=== PATIENT | female | born 1965 | race Native Hawaiian/Other Pacific Islander ===

== ENCOUNTER 2017-04-21 15:51 | Observation (INO) | payer BC ==
[~2017-04-21] VITALS: Ht 157.5 cm; Wt 105.2 kg
[~2017-04-21 15:51] MED LIST: ALPR0.2566 PO; AMLO5TAB PO; BENZ100C8 PO; CAL-MAG1 TAB PO; CRESTOR5 MG PO; GLUCOSAMINE1000 M1 PO; MELOXICAM7.5 MG OR; MELOXICAM7.5 MG PO; MULTI COMPLETE PO; NAPROSYN500 MG PO; NEXIUM40 M1 PO; NIACIN500 M4 PO; OXYB5TAB56 PO; PANT40TA PO; PAROXETINE40 MG PO; POT GLUCONAT595 MG PO; PRAMIPEXOLE0.125 MG PO; RANI150T78 PO; SIMV20TA2 PO; VENL75CA2 PO; VIT B12 ER1000 MCG PO; ZINC220 MG PO
[2017-04-21 16:01] VITALS: BP 171/98; TEMP 98.3
[2017-04-21 16:25] LABS: PLATELET COUNT 277 K/uL (152-353)
[2017-04-21 16:39] LABS: POTASSIUM 3.7 mmol/L (3.6-5.2); SODIUM 136 mmol/L (136-145)
[2017-04-21 17:00] VITALS: BP 168/82
[2017-04-21 19:14] VITALS: BP 135/75; TEMP 98; Ht 157.5 cm; Wt 105.2 kg
[2017-04-21 20:00] VITALS: BP 116/65; TEMP 98.1
[2017-04-22] VITALS: BP 90/46; TEMP 98.1
[2017-04-22 04:00] VITALS: BP 90/49; TEMP 97.8
[2017-04-22 08:00] VITALS: BP 119/73; TEMP 97.8
[2017-04-22 12:00] VITALS: BP 100/62; TEMP 97.9
--- NOTE | 2017-04-22 15:00 | NUR ---
IV D/C'D, TELE D/C'D. PT INSTURCTED TO MAKE FU WITH PCP IN ONE WEEK. D/C INSTRUCTIONS GIVEN. PT HAS NO FUTHER QUESTIONS. PT AMBULATED OUT AT THIS TIME. NO PROBLEMS NOTED.
== END 2017-04-22 12:45 | disposition home or self-care (01) ==
LOC: ED 15:51 → MED/SURG 17:05
DX: R07.89 Other chest pain (principal); I10 Essential (primary) hypertension; E78.4 Other hyperlipidemia; E66.8 Other obesity
CPT/HCPCS: 36415; 80053; 82550; 84484; 85027; 93005; 94664; 94760; 96365; 96366; 99220; 99283; G0378; J1650

== ENCOUNTER 2017-12-04 11:29 | Emergency (ER) | payer BC ==
[~2017-12-04] VITALS: Ht 157.5 cm; Wt 104.3 kg
[2017-12-04 11:30] VITALS: TEMP 98.1
[2017-12-04 11:59] LABS: PLATELET COUNT 256 K/uL (152-353)
[2017-12-04 12:05] LABS: POTASSIUM 3.9 mmol/L (3.6-5.2); SODIUM 144 mmol/L (136-145)
[2017-12-04 13:26] VITALS: BP 117/56
== END 2017-12-04 13:40 | disposition home or self-care (01) ==
LOC: ED 11:29
PROVIDERS: Family Medicine
DX: K21.9 Gastro-esophageal reflux disease without esophagitis (principal); R07.89 Other chest pain
CPT/HCPCS: 36415; 80053; 81000; 84484; 85027; 93005; 99283

== ENCOUNTER 2020-01-27 17:05 | Emergency (ER) | payer OTHER ==
[~2020-01-27] VITALS: Ht 157.5 cm; Wt 104.3 kg
[2020-01-27 17:46] LABS: PLATELET COUNT 277 K/uL (152-353)
[2020-01-27 17:56] LABS: SODIUM 140 mmol/L (136-145)
[2020-01-27 17:58] LABS: PARTIAL THROMBOPLASTIN TIME 22.1 SECONDS (24.5-33.6)
[2020-01-27 18:59] VITALS: BP 172/69; TEMP 99.7
== END 2020-01-27 19:01 | disposition home or self-care (01) ==
LOC: ED 17:05
PROVIDERS: Hospitalist
DX: J45.998 Other asthma (principal); J06.9 Acute upper respiratory infection, unspecified; R09.1 Pleurisy
CPT/HCPCS: 80053; 82550; 83880; 84484; 85027; 85379; 85610; 85730; 87040; 93005; 96365; 96375; 99284; J0696; J1885; J2930

== ENCOUNTER 2020-04-01 12:00 | Emergency (ER) | payer OTHER ==
[~2020-04-01] VITALS: Ht 157.5 cm; Wt 102.1 kg
[2020-04-01 12:00] VITALS: TEMP 98.2
[2020-04-01 13:38] VITALS: BP 165/84
== END 2020-04-01 13:38 | disposition home or self-care (01) ==
LOC: ED 12:05
DX: J06.9 Acute upper respiratory infection, unspecified (principal); Z20.828 Contact with and (suspected) exposure to other viral communicable diseases
CPT/HCPCS: 87635; 99282; U0003

== ENCOUNTER 2020-07-04 08:54 | Outpatient (CLI) | payer OTHER | END 2020-07-04 21:00 | disposition home or self-care (01) | LOC: RAD 08:54 | PROVIDERS: ATTEND Nurse Practitioner Family | DX: M54.9 Dorsalgia, unspecified (principal); M54.5 Low back pain ==

== ENCOUNTER 2020-08-23 16:27 | Outpatient (CLI) | payer OTHER | END 2020-08-23 23:06 | disposition home or self-care (01) | LOC: LABW 16:27 | PROVIDERS: ATTEND Nurse Practitioner Family | DX: R07.9 Chest pain, unspecified (principal) | CPT/HCPCS: 36415; 82550; 82552; 82553; 84484 ==

== ENCOUNTER 2020-11-15 10:40 | Outpatient (CLI) | payer OTHER | END 2020-11-15 23:00 | disposition home or self-care (01) | LOC: MRI 10:40 | PROVIDERS: ATTEND Orthopaedic Surgery | DX: M54.5 Low back pain (principal); M51.36 Other intervertebral disc degeneration, lumbar region ==

== ENCOUNTER 2020-11-27 08:33 | Outpatient (CLI) | payer OTHER | END 2020-11-27 22:12 | disposition home or self-care (01) | LOC: RAD 08:33 | PROVIDERS: ATTEND Nurse Practitioner Family | DX: Z13.820 Encounter for screening for osteoporosis (principal) ==

== ENCOUNTER 2021-03-15 10:21 | Emergency (ER) | payer OTHER ==
[~2021-03-15] VITALS: Ht 157.5 cm; Wt 98.9 kg
[2021-03-15 11:05] VITALS: BP 128/79; TEMP 98.7
== END 2021-03-15 11:05 | disposition home or self-care (01) ==
LOC: ED 10:21
DX: J06.9 Acute upper respiratory infection, unspecified (principal)
CPT/HCPCS: 99282

== ENCOUNTER 2021-10-28 15:46 | Emergency (ER) | payer OTHER ==
[~2021-10-28] VITALS: Ht 157.5 cm; Wt 89.4 kg
[2021-10-28 17:43] LABS: PLATELET COUNT 295 K/uL (152-353)
[2021-10-28 18:00] LABS: POTASSIUM 3.6 mmol/L (3.6-5.2)
[2021-10-28 20:45] VITALS: BP 131/75; TEMP 98.6
== END 2021-10-28 20:55 | disposition home or self-care (01) ==
LOC: ED 15:46
PROVIDERS: Family Medicine
DX: R42 Dizziness and giddiness (principal); H92.01 Otalgia, right ear; E66.8 Other obesity
CPT/HCPCS: 80053; 81002; 83735; 84100; 85027; 85610; 93005; 96360; 96365; 96375; 99284; J0696; J2920

== ENCOUNTER 2021-11-03 20:01 | Emergency (ER) | payer OTHER ==
[~2021-11-03] VITALS: Ht 157.5 cm; Wt 88.9 kg
[2021-11-03 21:45] VITALS: BP 129/79; TEMP 97.9
== END 2021-11-03 21:45 | disposition home or self-care (01) ==
LOC: ED 20:01
DX: R42 Dizziness and giddiness (principal); F41.8 Other specified anxiety disorders
CPT/HCPCS: 99282

== ENCOUNTER 2021-11-20 17:32 | Outpatient (CLI) | payer OTHER ==
[2021-11-20 17:55] LABS: PLATELET COUNT 312 K/uL (152-353)
[2021-11-20 17:58] LABS: POTASSIUM 3.8 mmol/L (3.6-5.2)
== END 2021-11-20 18:54 | disposition home or self-care (01) ==
LOC: CT 17:32
PROVIDERS: ATTEND Nurse Practitioner Family
DX: R51.9 Headache, unspecified (principal)
CPT/HCPCS: 36415; 80053; 85027

== ENCOUNTER 2021-12-16 20:26 | Emergency (ER) | payer OTHER ==
[~2021-12-16] VITALS: Ht 157.5 cm; Wt 92.5 kg
[2021-12-16 20:28] VITALS: TEMP 98.1
[2021-12-16 21:30] VITALS: BP 124/69
== END 2021-12-16 21:31 | disposition home or self-care (01) ==
LOC: ED 20:26
DX: R51.9 Headache, unspecified (principal)
CPT/HCPCS: 96372; 99283; J1200; J1885

== ENCOUNTER 2021-12-24 10:39 | Outpatient (CLI) | payer OTHER | END 2021-12-24 19:01 | disposition home or self-care (01) | LOC: RAD 10:39 | PROVIDERS: ATTEND Nurse Practitioner Family | DX: M54.12 Radiculopathy, cervical region (principal) ==

== ENCOUNTER 2021-12-26 16:44 | Emergency (ER) | payer OTHER ==
[~2021-12-26] VITALS: Ht 157.5 cm; Wt 93.4 kg
[2021-12-26 18:01] LABS: PLATELET COUNT 303 K/uL (152-353)
[2021-12-26 18:06] LABS: POTASSIUM 3.4 mmol/L (3.6-5.2)
[2021-12-26 19:27] VITALS: BP 115/65; TEMP 97.9
== END 2021-12-26 21:33 | disposition other institution (70) ==
LOC: ED 16:44
PROVIDERS: Emergency Medicine
DX: F32.9 Major depressive disorder, single episode, unspecified (principal); R45.851 Suicidal ideations; Z11.52 Encounter for screening for COVID-19
CPT/HCPCS: 36415; 80053; 80143; 80179; 80307; 80320; 81002; 85027; 87635; 93005; 99285; J2270; J2405; U0003

== ENCOUNTER 2022-01-09 12:37 | Outpatient (CLI) | payer OTHER | END 2022-01-09 19:00 | disposition home or self-care (01) | LOC: MRI 12:37 | PROVIDERS: ATTEND Nurse Practitioner Family | DX: G44.52 New daily persistent headache (NDPH) (principal) ==

== ENCOUNTER 2022-01-15 19:33 | Emergency (ER) | payer OTHER ==
[~2022-01-15] VITALS: Ht 157.5 cm; Wt 93.4 kg
[2022-01-15 19:45] VITALS: BP 126/78; TEMP 98.2
== END 2022-01-15 20:30 | disposition home or self-care (01) ==
LOC: ED 19:33
DX: H92.03 Otalgia, bilateral (principal); R20.2 Paresthesia of skin
CPT/HCPCS: 99281

== ENCOUNTER 2022-09-02 09:15 | Outpatient (CLI) | payer BC | END 2022-09-02 18:55 | disposition home or self-care (01) | LOC: MAMMO 09:15 | PROVIDERS: ATTEND Obstetrics & Gynecology | DX: Z12.31 Encounter for screening mammogram for malignant neoplasm of breast (principal) ==